=== PATIENT | male | born 1975 | race African-American/Black ===

== ENCOUNTER 2019-02-11 15:43 | Emergency (ER) | payer BC ==
[2019-02-11 15:56] VITALS: BP 151/74
[2019-02-11] MEDS ORDERED: LIDOCAINE 1% INJ-PF (10 MG/ML) 30 ML SDV INJ ONE (16:11)
[2019-02-11] MEDS ORDERED: DIPH/PERTUSS(ACELL)/TETANUS VAC/PF 0.5 ML SYR (>=10YO) IM ONE (16:15)
[2019-02-11] MEDS ORDERED: IBUPROFEN 800 MG TABLET PO ONE (16:22)
--- NOTE | 2019-02-11 16:22 | ER Document Report ---
HPI - HPI Patient complains to provider of: forehead laceration Time Seen by Provider: 02/11/19 15:53 Onset: Just prior to arrival Onset/Duration: Sudden Quality of pain: Achy Pain Level: 4 Context: Patient presents the emergency department with laceration to his right side of his forehead. Patient reports he was working on a pipe and came back and hit the wrench on his head. He is not sure when his last tetanus was. No change in LOC. Laceration slight bleeding to the right side of his forehead approximately 3 cm long. Associated Symptoms: None Exacerbated by: Denies Relieved by: Denies Similar symptoms previously: No Recently seen / treated by doctor: No - CONSTITUTIONAL Constitutional: DENIES: Fever, Chills - NEURO Neurology: REPORTS: Headache Past Medical History - General Information source: Patient - Social History Smoking Status: Unknown if Ever Smoked Cigarette use (# per day): No Frequency of alcohol use: None Drug Abuse: None Lives with: Family Family History: None Patient has suicidal ideation: No Patient has homicidal ideation: No - Medical History Medical History: Negative Renal/ Medical History: Denies: Hx Peritoneal Dialysis Surgical Hx: Negative Vertical Provider Document - CONSTITUTIONAL Agree With Documented VS: Yes Exam Limitations: No Limitations General Appearance: WD/WN, No Apparent Distress - INFECTION CONTROL TRAVEL OUTSIDE OF THE [place] IN LAST 30 DAYS: No - HEENT HEENT: Atraumatic, Normocephalic, PERRLA. negative: Conjuctival Injection Notes: closes eyes, lifts eyebrows without problems, facial expressions symmetric, no weakness - NECK Neck: Supple - RESPIRATORY Respiratory: No Respiratory Distress - MUSCULOSKELETAL/EXTREMETIES Musculoskeletal/Extremeties: MALLORY CABRAL - NEURO Level of Consciousness: Awake, Alert, Appropriate Motor/Sensory: No Motor Deficit - DERM Integumentary: Warm, Dry, Laceration Adult Front & Back Diagram: 1 - 2.9-3 cm laceration Course - Re-evaluation Re-evalutation: 02/11/19 This 43-year-old male presents the emergency department with laceration to his forward. He reports he was working on a pipe in himself with the wrench accidentally. No change in LOC. Does not remember his last tetanus shot was. Patient was provided with a tetanus shot instructed to take Motrin for the pain and the area was sutured up. It was too large and too deep to closed with Dermabond or just Steri-Strips. Patient instructed on plan instructed to monitor for signs of infection. Also instructed return here in 5 days for removal of sutures. He verbalized understanding to all instructions. Dictation of this chart was performed using voice recognition software; therefore, there may be some unintended grammatical errors. - Vital Signs Vital signs: Temp Pulse Resp BP Pulse Ox 98.2 F 87 16 151/74 H 97 02/11/19 15:54 02/11/19 15:54 02/11/19 15:54 02/11/19 15:54 02/11/19 15:54 Procedures - Laceration/Wound Repair forehead Wound length (cm): 3 - 2.9cm Wound's Depth, Shape: Superficial Laceration pre-procedure: Shur-Clens applied Anesthetic type: 1% Lidocaine Volume Anesthetic (mLs): 1 Wound explored: Clean Irrigated w/ Saline (mLs): 100 Wound Repaired With: Sutures Suture Size/Type: 5:0, Prolene Number of Sutures: 5 Layer Closure?: No Post-procedure NV exam normal: Yes Complications: No Notes: 02/11/19 18:17 pt tolerated procedure well Adult Head Front/Back picture: 1 - 2.9 cm laceration vertical superficial Discharge - Discharge Clinical Impression: Laceration of forehead Qualifiers: Encounter type: initial encounter Qualified Code(s): S01.81XA - Laceration without foreign body of other part of head, initial encounter Condition: Stable Disposition: HOME, SELF-CARE Instructions: Laceration Care ([facility]), Tetanus Immunization Given ([facility]) Additional Instructions: *You have been treated for laceration with suture repair *Take ibuprofen as indicated for pain *Monitor the site for signs of infection such as increasing pain, redness, swelling, warmth *keep the area clean *Follow up here in 5 days for suture removal *Return to ED for signs of infection, worsening condition, changes, needs Monitor your blood pressure. Your blood pressure was elevated today. This may be because you were anxious, in pain or because you need medication. It is important to follow up with your primary care provider for full evaluation. Forms: Elevated Blood Pressure
== END 2019-02-11 16:48 | disposition home or self-care (01) ==
LOC: ER 15:43
PROC: 0HQ1XZZ Repair Face Skin, External Approach (ICD-10-PCS; principal; 2019-02-11)
DX: S01.81XA Laceration without foreign body of other part of head, initial encounter (principal); W22.8XXA Striking against or struck by other objects, initial encounter
CPT/HCPCS: 99282; 90471; 90715; 12013; J3490